=== PATIENT | female | born 1960 | race Caucasian/White ===

== ENCOUNTER → 2024-09-03 | Outpatient (CLI) | payer MEDICARE, SELFPAY ==
[2024-09-03 11:37] LABS: EXAGEN MAILED SPECIMEN
[2024-09-03 12:48] LABS: Absolute Lymphocyte Count 3.51 X10^3/uL (0.83-4.51); Absolute Neutrophil Count 5.4 X10^3/uL (2.0-7.7); Basophil# 0.12 X10^3/uL; Basophil% 1.2 % (0-1); Eosinophil# 0.47 X10^3/uL; Eosinophils% 4.6 % (0-5); Hematocrit 46.2 % (37-47); Hemoglobin 15.1 g/dL (12.0-15.0); Lymphocyte # 3.51 X10^3/ul (0.83-4.51); Lymphocyte % 34.2 % (19-41); Mean Corp Hgb Conc 32.7 g/dL (32-36); Mean Corpuscular Hgb 28.3 pg (27.0-32.0); Mean Corpuscular Volume 86.7 fL (81-99); Mean Platelet Vol. 9.8 fl (6.2-12.0); Monocyte# 0.76 X10^3/uL; Monocyte% 7.4 % (0-10); NRBC Flagged by Analyzer 0 % (0-5); Neutrophil # 5.35 X10^3/uL (2.7-7.7); Neutrophil % 52.2 % (47-70); Platelet Count 242 K/mm3 (150-450); RBC Distribution Width CV 13.5 % (11.6-14.6); RBC Distribution Width SD 42.5 fl (35.1-43.9); Red Blood Count 5.33 M/mm3 (4.2-5.4); White Blood Count 10.3 K/mm3 (4.4-11.0)
[2024-09-03 15:25] LABS: ALB/GLOB Ratio 1.3 RATIO (0.9-2.4); AST(SGOT) 20 U/L (<=31); Alanine Aminotransfer ALT/SGPT 12 U/L (<=34); Albumin, Serum 3.9 g/dL (3.4-4.8); Alkaline Phosphatase 99 U/L (35-104); Anion Gap 12 (5-15); BUN 16 mg/dL (4-19); BUN/Creat Ratio 16.7 RATIO (10-20); Calcium,Total 9.3 mg/dL (7.6-11.0); Chloride 102 mmol/L (98-108); Color, Urine Yellow (Yellow); Creatinine, Serum 0.98 mg/dL (0.70-1.20); EST Glomerular Filtration Rate 65 (>60); Globulin 2.9 g/dL (2.2-4.2); Glucose 92 mg/dL (70-99); Glucose, Dipstick Normal (Normal); Ketone-Dipstick Negative (Negative); Leukocyte Esterase-Dipstick 100 /ul (Negative); Nitrite-Dipstick Negative (Negative); Occult Blood-Urine 10 /ul (Negative); Potassium 3.8 mmol/L (3.3-5.1); Protein, Total 6.9 g/dL (5.9-8.4); Protein-Dipstick 30 mg/dl (Negative); Sodium Level 139 mmol/L (133-145); Specific Gravity, Urine 1.025 (1.002-1.030); Total Bilirubin 0.66 mg/dL (0.00-1.30); Urine Bilirubin Dipstick Negative (Negative); Urine Clarity Clear (Clear); Urine Urobilinogen 1 mg/dl (Normal)
[2024-09-03 16:21] LABS: Hepatitis B Surface Antigen Nonreactive (Nonreactive); Hepatitis C Antibody Nonreactive (Nonreactive)
[2024-09-03 19:28] LABS: Protein, Urine (Random) 9.6 mg/dL (0.0-12.0); Protein:Creat Ratio 37 mg/g CRE (0-200)
[2024-09-03 21:23] LABS: Hepatitis B Surface Antibody Nonreactive
[2024-09-06 06:07] LABS: Dilute Prothrombin Time (dPT) 41.2 sec (0.0-47.6); Dilute Russell Viper Venom Mix 48.3 sec (0.0-40.4); Interpretation Comment: (.); PTT-LA 36.1 sec (0.0-43.5); Thrombin Time 18.7 sec (0.0-23.0); dPT Confirm Ratio 1.07 Ratio (0.00-1.34)
== END | disposition home or self-care (01) ==
LOC: MTLAB 10:22
PROVIDERS: PCP Family Medicine; Referring Provider Internal Medicine Rheumatology; Visit Provider Internal Medicine Rheumatology
DX: M06.4 Inflammatory polyarthropathy (principal); M79.7 Fibromyalgia; R76.8 Other specified abnormal immunological findings in serum
CPT/HCPCS: 36415; 80053; 81002; 82570; 84156; 85025; 86706; 86803; 87340